=== PATIENT | male | born 1970 | race Asian ===

== ENCOUNTER → 2018-09-27 | Outpatient (CLI) | payer SELFPAY ==
[2018-09-27 10:03] LABS: HEMATOCRIT 46.6 % (37.9-51.0); HEMOGLOBIN 15.5 g/dL (13.5-17.0); MEAN CORPUSCULAR HEMOGLOBIN 27.6 pg (27.0-33.4); MEAN CORPUSCULAR HGB CONC 33.3 g/dL (32.0-36.0); MEAN CORPUSCULAR VOLUME 83 fl (80-97); PLATELET COUNT 286 10^3/uL (150-450); RED BLOOD COUNT 5.62 10^6/uL (4.35-5.55); RED CELL DISTRIBUTION WIDTH 13.4 % (11.5-14.0); WHITE BLOOD COUNT 6.1 10^3/uL (4.0-10.5)
[2018-09-27 10:31] LABS: ALBUMIN 4.8 g/dL (3.5-5.0); ALKALINE PHOSPHATASE 46 U/L (38-126); ANION GAP 9 (5-19); ASPARTATE AMINO TRANSFERASE 29 U/L (17-59); BILIRUBIN,DIRECT 0.1 mg/dL (0.0-0.4); BILIRUBIN,TOTAL 1.3 mg/dL (0.2-1.3); BLOOD UREA NITROGEN 18 mg/dL (7-20); CALCIUM 9.6 mg/dL (8.4-10.2); CARBON DIOXIDE 28 mmol/L (22-30); CHLORIDE 103 mmol/L (98-107); CHOLESTEROL 234.28 mg/dL (0-200); GLUCOSE 96 mg/dL (75-110); PHOSPHORUS 4.1 mg/dL (2.5-4.5); POTASSIUM 4.2 mmol/L (3.6-5.0); TRIGLYCERIDES 165 mg/dL (<150); URIC ACID 7.6 mg/dL (3.5-8.5)
[2018-09-27 10:40] LABS: ERYTHROCYTE SEDIMENTATION RATE 13 mm/hr (0-15)
[2018-09-27 10:41] LABS: DIRECT LDL 134 mg/dL (<100)
== END ==
LOC: LAB 09:44
PROVIDERS: ATTEND Internal Medicine Cardiovascular Disease
DX: M25.511 Pain in right shoulder (principal); K76.0 Fatty (change of) liver, not elsewhere classified; E78.00 Pure hypercholesterolemia, unspecified
CPT/HCPCS: 36415; 80061; 80069; 80076; 83036; 84550; 85027; 85652